=== PATIENT | male | born 1970 | race Caucasian/White ===

== ENCOUNTER → 2018-03-04 | Outpatient (CLI) | payer OTHER ==
--- NOTE | 2018-03-04 11:26 | XR ---
EXAMINATION TYPE: XR hand complete LT DATE OF EXAM: 03/04/2018 CLINICAL HISTORY: Left hand pain TECHNIQUE: Frontal, lateral and oblique images of the left hand are obtained. COMPARISON: None. FINDINGS: There is no acute fracture/dislocation evident in the left hand. The joint spaces in the l eft hand appear within normal limits. The overlying soft tissue appears unremarkable. IMPRESSION: There is no acute fracture or dislocation in the left hand.
--- NOTE | 2018-03-04 11:27 | XR ---
EXAMINATION TYPE: XR knee complete LT DATE OF EXAM: 03/04/2018 CLINICAL HISTORY: Fall with subsequent left knee pain TECHNIQUE: Three views of the left knee are obtained. COMPARISON: None. FINDINGS: There is no acute fracture/dislocation evident in left knee. The tri-compartment joint sp aces appear within normal limits. The overlying soft tissue appears unremarkable. IMPRESSION: There is no acute fracture or dislocation in the left knee.
== END | disposition home or self-care (01) ==
LOC: RADXRMAIN 11:03
PROVIDERS: ATTEND Family Medicine
DX: M25.562 Pain in left knee (principal)

== ENCOUNTER 2019-08-18 13:42 | Emergency (ER) | payer OTHER ==
[2019-08-18 14:12] VITALS: RESP 18
[2019-08-18 14:48] LABS: Basophils # (A) 0.1 k/uL (0-0.2); Basophils % (A) 2 %; Eosinophils # (A) 0.7 k/uL (0-0.7); Eosinophils % (A) 9 %; HCT 43.9 % (39.0-53.0); HGB 14.6 gm/dL (13.0-17.5); Lymphocytes # (A) 1.4 k/uL (1.0-4.8); Lymphocytes % (A) 18 %; MCH 31.6 pg (25.0-35.0); MCHC 33.1 g/dL (31.0-37.0); MCV 95.2 fL (80.0-100.0); Mean Platelet Volume 6.8; Monocytes # (A) 0.6 k/uL (0-1.0); Monocytes % (A) 7 %; Neutrophils # (A) 4.6 k/uL (1.3-7.7); Neutrophils % (A) 61 %; Platelet Count 220 k/uL (150-450); RBC 4.61 m/uL (4.30-5.90); RDW 12.1 % (11.5-15.5); WBC 7.6 k/uL (3.8-10.6)
[2019-08-18 14:56] LABS: ALT 20 U/L (21-72); AST 24 U/L (17-59); African American GFR (CKD) >90 (>60 ml/min/1.73 sqM); Albumin 4.6 g/dL (3.5-5.0); Alkaline Phosphatase 64 U/L (38-126); Anion Gap 9 mmol/L; Blood Urea Nitrogen 11 mg/dL (9-20); Calcium 9.7 mg/dL (8.4-10.2); Carbon Dioxide 27 mmol/L (22-30); Chloride 103 mmol/L (98-107); Glucose 79 mg/dL (74-99); Potassium 4.5 mmol/L (3.5-5.1); Sodium 139 mmol/L (137-145); Total Bilirubin 0.9 mg/dL (0.2-1.3); Total Protein 7.3 g/dL (6.3-8.2)
[2019-08-18] MEDS ORDERED: methylPREDNISolone SOD SUCCI 125 MG/2 ML VIAL IV STA (15:46)
[2019-08-18] MEDS ORDERED: IPRATROPIUM-ALBUTEROL 3 ML NEB INHALATION STA ×2 (15:46→16:31)
--- NOTE | 2019-08-18 16:29 | XR ---
EXAMINATION TYPE: XR chest 2V DATE OF EXAM: 08/18/2019 COMPARISON: NONE HISTORY: Missed breath TECHNIQUE: Frontal and lateral views of the chest are obtained. FINDINGS: There are prominent lung volumes with relative flattening of hemidiaphragms suggesting unde rlying COPD. There is no focal air space opacity, pleural effusion, or pneumothorax seen. The cardia c silhouette size is within normal limits. The osseous structures are intact. IMPRESSION: No acute cardiopulmonary process.
--- NOTE | 2019-08-18 16:44 | ED ---
SOB HPI - General Chief Complaint: Shortness of Breath Stated Complaint: SOB Time Seen by Provider: 08/18/19 15:37 Source: patient Mode of arrival: wheelchair Limitations: no limitations - History of Present Illness Initial Comments: 49-year-old male with history of COPD presenting today for chief complaint of increasing wheezing and shortness of breath. Patient states he feels like he cannot expand his lungs he states he has been doing home breathing treatments today do not seem to help. Patient denies chest pain. Patient denies leg swelling or coughing up blood patient states he has had some sputum production denies fevers rigors or chills. Patient denies any sore throat he denies any recent travel surgery history of cancer. Patient states that he is a chronic wheezer in his lungs always sound "bad". Patient states he follows a pulmonol ogist. Remaining review of system negative. Upon arrival patient appears well no signs of acute distress. - Related Data Home Medications Medication Instructions Recorded Confirmed Albuterol Inhaler [Ventolin 2 puff INHALATION RT-QID 04/03/14 08/18/19 Inhaler] Albuterol Nebulized [Ventolin 2.5 mg INHALATION RT-QID PRN 11/27/17 08/18/19 Nebulized] Montelukast [Singulair] 10 mg PO HS 11/27/17 08/18/19 Omalizumab [Xolair] 300 mg SQ Q14D 11/27/17 08/18/19 Umeclidinium [place] [Incruse 1 puff INHALATION RT-DAILY 08/18/19 08/18/19 Ellipta] Previous Rx's Medication Instructions Recorded Azithromycin [Zithromax Z-pack] 0 mg PO DIRECTED #6 tab 08/18/19 predniSONE 20 mg PO BID 4 Days #8 tab 08/18/19 Allergies Allergy/AdvReac Type Severity Reaction Status Date / Time Penicillins Allergy Rash/Hives Verified 08/18/19 16:13 Review of Systems ROS Statement: Those systems with pertinent positive or pertinent negative responses have been documented in the HPI. ROS Other: All systems not noted in ROS Statement are negative. Past Medical History Past Medical History: Asthma History of Any Multi-Drug Resistant Organisms: None Reported Past Surgical History: Adenoidectomy, Hernia Repair, Tonsillectomy Past Psychological History: Depression Smoking Status: Current every day smoker Past Alcohol Use History: None Reported, Abuse, Daily, Heavy Past Drug Use History: None Reported General Exam - General Exam Comments Initial Comments: General: The patient is awake and alert, in no distress, and does not appear acutely ill. Eye: +3 mm pupils are equal, round and reactive to light, extra-ocular movements are intact. No nystagmus. There is normal conjunctiva bilaterally. No signs of icterus. Ears, nose, mouth and throat: There are moist mucous membranes and no oral lesions. Neck: The neck is supple, there is no tenderness or JVD. Cardiovascular: There is a regular rate and rhythm. No murmur, rub or gallop is appreciated. Respiratory: Diminished air movement of the lung boyer bilaterally. However respirations are nonlabored there is significant expiratory wheeze and no stridor rales or rhonchi noted. Dry cough and exam. Gastrointestinal: Soft, non-distended, non-tender abdomen without masses or organomegaly noted. There is no rebound or guarding present. Musculoskeletal: Normal ROM, no tenderness. Strength 5/5. Sensation intact. Radial and DP pulses equal bilaterally 2+. Neurological: A&O x 3. CN II-XII intact, There are no obvious motor or sensory deficits. Coordination appears grossly intact. Speech is normal. Skin: Skin is warm and dry and no rashes or lesions are noted. No lower extremity edema Psychiatric: Cooperative, appropriate mood & affect, normal judgment. Limitations: no limitations Course Vital Signs 08/18/19 08/18/19 08/18/19 13:47 15:37 16:11 Temperature 97.8 F Pulse Rate 89 96 Respiratory 18 Rate Blood Pressure 142/97 O2 Sat by Pulse 95 91 L Oximetry 08/18/19 08/18/19 08/18/19 16:25 16:43 16:56 Temperature Pulse Rate 98 96 94 Respiratory Rate Blood Pressure O2 Sat by Pulse Oximetry 08/18/19 17:30 Temperature 98.7 F Pulse Rate 84 Respiratory 18 Rate Blood Pressure 132/93 O2 Sat by Pulse 96 Oximetry Medical Decision Making - Medical Decision Making 49-year-old male presents emergency department for chief complaint shortness of breath history of COPD states it feels like when his COPD has been accessory in the past. Patient had significant improvement after 1 DuoNeb treatment he attempts to leave the emergency department I encouraged patient to stay for second IC stilts for wheeze however had increased air movement. Patient states he has chronic wheezing and that'll not be completely resolved. Patient states she would like to go home THE bus he states he feels 100% better. Patient was also given slightly mottled emergency department. EKG stable troponin negative leukocytosis and chest x-ray revealed no focal consolidations. at this time feel patient is stable for discharge with outpatient primary care follow-up. return parameters were discussed in a discussed the case metallic provider. patient is discharged appearing well improvement of oxygen saturation. - Lab Data Result diagrams: 08/18/19 14:40 08/18/19 14:40 Lab Results 08/18/19 08/18/19 08/18/19 Range/Units 14:40 14:40 14:40 WBC 7.6 (3.8-10.6) k/uL RBC 4.61 (4.30-5.90) m/uL Hgb 14.6 (13.0-17.5) gm/dL Hct 43.9 (39.0-53.0) % MCV 95.2 (80.0-100.0) fL MCH 31.6 (25.0-35.0) pg MCHC 33.1 (31.0-37.0) g/dL RDW 12.1 (11.5-15.5) % Plt Count 220 (150-450) k/uL Neutrophils % 61 % Lymphocytes % 18 % Monocytes % 7 % Eosinophils % 9 % Basophils % 2 % Neutrophils # 4.6 (1.3-7.7) k/uL Lymphocytes # 1.4 (1.0-4.8) k/uL Monocytes # 0.6 (0-1.0) k/uL Eosinophils # 0.7 (0-0.7) k/uL Basophils # 0.1 (0-0.2) k/uL Sodium 139 (137-145) mmol/L Potassium 4.5 (3.5-5.1) mmol/L Chloride 103 (98-107) mmol/L Carbon Dioxide 27 (22-30) mmol/L Anion Gap 9 mmol/L BUN 11 (9-20) mg/dL Creatinine 0.71 (0.66-1.25) mg/dL Est GFR (CKD-EPI)AfAm >90 (>60 ml/min/1.73 sqM) Est GFR (CKD-EPI)NonAf >90 (>60 ml/min/1.73 sqM) Glucose 79 (74-99) mg/dL Calcium 9.7 (8.4-10.2) mg/dL Total Bilirubin 0.9 (0.2-1.3) mg/dL AST 24 (17-59) U/L ALT 20 L (21-72) U/L Alkaline Phosphatase 64 (38-126) U/L Troponin I 0.012 (0.000-0.034) ng/mL Total Protein 7.3 (6.3-8.2) g/dL Albumin 4.6 (3.5-5.0) g/dL - EKG Data EKG Comments: Ventricular rate 74 bpm, PA interval 118 ms, QRS ratio 92 ms QT/QTC 426/472 ms this is normal sinus no ST elevation or depression. No specific T-wave changes. There is noted right atrial enlargement. EKG per se interpreted and reviewed. Disposition Clinical Impression: Shortness of breath, COPD exacerbation, Cough Disposition: HOME SELF-CARE Condition: Good Instructions (If sedation given, give patient instructions): COPD (Chronic O bstructive Pulmonary Disease) (ED) Additional Instructions: Please use medication as discussed. Please follow-up with family doctor in the next 2 days. Please return to emergency room if the symptoms increase or worsen or for any other concerns. Prescriptions: predniSONE 20 mg PO BID 4 Days #8 tab Azithromycin [Zithromax Z-pack] 0 mg PO DIRECTED #6 tab Is patient prescribed a controlled substance at d/c from ED?: No Referrals: Romero Orozco MD [Primary Care Provider] - 1-2 days Time of Disposition: 17:31
[2019-08-18 17:32] VITALS: BP 132/93; PULSE 84; TEMP 98.7
== END 2019-08-18 17:37 | disposition home or self-care (01) ==
LOC: EC 13:42
DX: J44.1 Chronic obstructive pulmonary disease with (acute) exacerbation (principal); F17.200 Nicotine dependence, unspecified, uncomplicated; Z79.899 Other long term (current) drug therapy; Z88.0 Allergy status to penicillin
CPT/HCPCS: 36415; 94640 ×2; 93005; 80053; 84484; 85025; 71046; 99285; 96374; J2930

== ENCOUNTER → 2019-08-26 | Outpatient (CLI) | payer OTHER ==
--- NOTE | 2019-08-26 09:12 | CT ---
EXAMINATION TYPE: CT chest wo con DATE OF EXAM: 08/26/2019 COMPARISON: Chest x-ray 8 days ago. HISTORY: COPD CT DLP: 136.1 mGycm. Automated Exposure Control for Dose Reduction was Utilized. TECHNIQUE: CT scan of the thorax is performed without IV contrast. FINDINGS: LUNGS: There is lateral left basilar linear scarring and/or atelectasis. Mild left apical linear scar ring. Mild underlying emphysematous change. No pleural effusion or pneumothorax is seen bilaterally. There is 3 mm calcified nodule or granuloma medial right lung base coronal image 50. No suspicious gr eater than 4 mm noncalcified nodules or masses. MEDIASTINUM: Lack of IV contrast is noted to limit evaluation for mediastinal and especially hilar ad enopathy. There are no definitive greater than 1 cm hilar or mediastinal lymph nodes. No cardiomega ly or pericardial effusion is seen. Right pulmonary artery measures 2.4 cm in diameter. Correlate for possible underlying pulmonary hypertension. OTHER: Small degree of bilateral gynecomastia is noted. Mild multilevel spurring. IMPRESSION: Mild underlying emphysematous change without acute pulmonary process.
== END | disposition home or self-care (01) ==
LOC: RADCTMAIN 06:57
PROVIDERS: ATTEND Internal Medicine Pulmonary Disease
DX: J43.9 Emphysema, unspecified (principal); R63.4 Abnormal weight loss; J45.50 Severe persistent asthma, uncomplicated; Z88.0 Allergy status to penicillin
CPT/HCPCS: 71250

== ENCOUNTER 2021-04-04 07:44 | Emergency (ER) | payer OTHER ==
[2021-04-04 07:52] VITALS: RESP 18
--- NOTE | 2021-04-04 08:02 | ED ---
Lower Extremity Injury HPI - General Chief Complaint: Extremity Injury, Lower Stated Complaint: abd pain/ankle injury Time Seen by Provider: 04/04/21 07:53 Source: patient Mode of arrival: ambulatory Limitations: no limitations - History of Present Illness Initial Comments: 51-year-old male who is a daily drinker presenting to the ER today for chief complaint of right ankle pain. Patient states he inverted his right ankle and has had pain swelling and bruising since Saturday. Patient states that yesterday he developed right rib pain while rolling over in bed. He states he is not sure if he displaced rib. Patient states the pain increases with a deep breath. He denies any chest pressure or shortness of breath hemoptysis. He denies any calf swelling or pain. Patient states the ankle is swollen/bruised. Pt denies head/neck or abdominal injury. Denies direct chest injury. Patient denies additional complaints. pt states that he is missing work and has to prove to him employer his injuries. pt on arrival is pleasant in no distress. - Related Data Home Medications Medication Instructions Recorded Confirmed Albuterol Nebulized [Ventolin 2.5 mg INHALATION RT-QID PRN 11/27/17 04/04/21 Nebulized] Montelukast [Singulair] 10 mg PO HS 11/27/17 04/04/21 Fluticasone Propionate [Flovent 2 puff INHALATION RT-BID 04/04/21 04/04/21 Hfa 220 mcg] Omalizumab [Xolair] 75 mg SQ Q14D 04/04/21 04/04/21 Omalizumab [Xolair] 150 mg SQ Q14D 04/04/21 04/04/21 Propranolol HCl [Inderal] 60 mg PO BID 04/04/21 04/04/21 Tiotropium [place] [Spiriva] 1 cap INHALATION RT-DAILY 04/04/21 04/04/21 terbinafine HCL [Terbinafine HCl] 250 mg PO DAILY 04/04/21 04/04/21 Allergies Allergy/AdvReac Type Severity Reaction Status Date / Time Penicillins Allergy Rash/Hives Verified 04/04/21 10:38 Review of Systems ROS Statement: Those systems with pertinent positive or pertinent negative responses have been documented in the HPI. ROS Other: All systems not noted in ROS Statement are negative. Past Medical History Past Medical History: Asthma, Hypertension History of Any Multi-Drug Resistant Organisms: None Reported Past Surgical History: Adenoidectomy, Hernia Repair, Tonsillectomy Past Psychological History: Depression Past Alcohol Use History: None Reported, Abuse, Daily, Heavy Past Drug Use History: None Reported General Exam - General Exam Comments Initial Comments: General: The patient is awake and alert, in no distress, and does not appear acutely ill. Eye: Pupils are equal, round and reactive to light, extra-ocular movements are intact. No nystagmus. There is normal conjunctiva bilaterally. No signs of icterus. Ears, nose, mouth and throat: There are moist mucous membranes and no oral lesions. Neck: The neck is supple, there is no tenderness or JVD. Cardiovascular: There is a regular rate and rhythm. No murmur, rub or gallop is appreciated. Respiratory: Lungs are clear to auscultation, respirations are non-labored, breath sounds are equal. No wheezes, stridor, rales, or rhonchi. Gastrointestinal: Soft, non-distended, non-tender abdomen without masses or organomegaly noted. There is no rebound or guarding present. Musculoskeletal: No bruising of ribs noted. Soft tissue swelling and bruising noted over the right lateral malleolus. can weight bear and ambulate. Normal ROM. Strength 5/5. Sensation intact. Radial and DP pulses equal bilaterally 2+. Neurological: A&O x 3. CN II-XII intact, There are no obvious motor or sensory deficits. Coordination appears grossly intact. Speech is normal. Skin: Skin is warm and dry and no rashes or lesions are noted. Psychiatric: Cooperative, appropriate mood & affect, normal judgment. Limitations: no limitations Course Vital Signs 04/04/21 04/04/21 07:47 10:47 Temperature 97.8 F 98.3 F Pulse Rate 117 H 93 Respiratory 18 18 Rate Blood Pressure 180/98 161/114 O2 Sat by Pulse 97 100 Oximetry Medical Decision Making - Medical Decision Making Ventricular rate 103 bpm, MT interval 136 pulse seconds, QRS ratio 92 ms, QT/QTC 370/495 ms. This is sinus tachycardia, no ST elevation or depression. Ankle sprain on exam. XR (-) osseous injury. pt placed in splint. US (-) DVT. CTA (-) PE. likely MSK cause of rib pain. No chest pain. Pt states he just wants a work note and to go home. pt has no additional complaints. Pt discharged appearing well. - Lab Data Result diagrams: 04/04/21 08:38 04/04/21 08:38 Lab Results 04/04/21 04/04/21 04/04/21 Range/Units 08:38 08:38 08:38 WBC 7.7 (3.8-10.6) k/uL RBC 4.58 (4.30-5.90) m/uL Hgb 14.7 (13.0-17.5) gm/dL Hct 43.0 (39.0-53.0) % MCV 93.9 (80.0-100.0) fL MCH 32.0 (25.0-35.0) pg MCHC 34.1 (31.0-37.0) g/dL RDW 12.4 (11.5-15.5) % Plt Count 274 (150-450) k/uL MPV 6.8 Neutrophils % 69 % Lymphocytes % 21 % Monocytes % 6 % Eosinophils % 1 % Basophils % 1 % Neutrophils # 5.3 (1.3-7.7) k/uL Lymphocytes # 1.6 (1.0-4.8) k/uL Monocytes # 0.5 (0-1.0) k/uL Eosinophils # 0.1 (0-0.7) k/uL Basophils # 0.1 (0-0.2) k/uL D-Dimer 1.12 H (<0.60) mg/L FEU Sodium 142 (137-145) mmol/L Potassium 3.8 (3.5-5.1) mmol/L Chloride 106 (98-107) mmol/L Carbon Dioxide 24 (22-30) mmol/L Anion Gap 12 mmol/L BUN 8 L (9-20) mg/dL Creatinine 0.62 L (0.66-1.25) mg/dL Est GFR (CKD-EPI)AfAm >90 (>60 ml/min/1.73 sqM) Est GFR (CKD-EPI)NonAf >90 (>60 ml/min/1.73 sqM) Glucose 101 H (74-99) mg/dL Calcium 9.2 (8.4-10.2) mg/dL Total Bilirubin 0.4 (0.2-1.3) mg/dL AST 41 (17-59) U/L ALT 24 (4-49) U/L Alkaline Phosphatase 74 (38-126) U/L Troponin I (0.000-0.034) ng/mL NT-Pro-B Natriuret Pep pg/mL Total Protein 7.2 (6.3-8.2) g/dL Albumin 4.6 (3.5-5.0) g/dL 04/04/21 04/04/21 Range/Units 08:38 08:38 WBC (3.8-10.6) k/uL RBC (4.30-5.90) m/uL Hgb (13.0-17.5) gm/dL Hct (39.0-53.0) % MCV (80.0-100.0) fL MCH (25.0-35.0) pg MCHC (31.0-37.0) g/dL RDW (11.5-15.5) % Plt Count (150-450) k/uL MPV Neutrophils % % Lymphocytes % % Monocytes % % Eosinophils % % Basophils % % Neutrophils # (1.3-7.7) k/uL Lymphocytes # (1.0-4.8) k/uL Monocytes # (0-1.0) k/uL Eosinophils # (0-0.7) k/uL Basophils # (0-0.2) k/uL D-Dimer (<0.60) mg/L FEU Sodium (137-145) mmol/L Potassium (3.5-5.1) mmol/L Chloride (98-107) mmol/L Carbon Dioxide (22-30) mmol/L Anion Gap mmol/L BUN (9-20) mg/dL Creatinine (0.66-1.25) mg/dL Est GFR (CKD-EPI)AfAm (>60 ml/min/1.73 sqM) Est GFR (CKD-EPI)NonAf (>60 ml/min/1.73 sqM) Glucose (74-99) mg/dL Calcium (8.4-10.2) mg/dL Total Bilirubin (0.2-1.3) mg/dL AST (17-59) U/L ALT (4-49) U/L Alkaline Phosphatase (38-126) U/L Troponin I <0.012 (0.000-0.034) ng/mL NT-Pro-B Natriuret Pep 76 pg/mL Total Protein (6.3-8.2) g/dL Albumin (3.5-5.0) g/dL Disposition Clinical Impression: Right ankle sprain, Rib pain on right side Disposition: HOME SELF-CARE Condition: Good Instructions (If sedation given, give patient instructions): Ankle Sprain (ED) Additional Instructions: Please use medication as discussed. Please follow-up with family doctor in the next 2 days of symptoms have not improved. Please return to emergency room if the symptoms increase or worsen or for any other concerns. Is patient prescribed a controlled substance at d/c from ED?: No Referrals: Romero Orozco MD [Primary Care Provider] - 1-2 days Time of Disposition: 10:44
--- NOTE | 2021-04-04 08:33 | XR ---
EXAMINATION TYPE: XR ankle complete RT DATE OF EXAM: 04/04/2021 COMPARISON: None HISTORY: Swelling, inversion injury TECHNIQUE: 3 view right ankle FINDINGS: Soft tissue swelling is over the lateral malleolus. Anterior ankle swelling is also noted. The ankle mortise is intact. No acute fracture or dislocation is evident. Follow-up studies can be performed 7-10 days from acute trauma for continued pain. IMPRESSION: 1. Soft tissue swelling anterior and lateral right ankle.
--- NOTE | 2021-04-04 08:35 | XR ---
EXAMINATION TYPE: XR ribs RT w pa chest xray DATE OF EXAM: 04/04/2021 CLINICAL HISTORY: Chest and right lower rib pain after fall injury. TECHNIQUE: Single frontal view of the chest is obtained. A frontal and oblique images of the right-si ded ribs are acquired. COMPARISON: Chest x-ray August 18, 2019. CT chest August 26, 2019. FINDINGS: There is mild chronic parenchymal change without suspicious new focal air space opacity, p leural effusion, or pneumothorax seen. The cardiac silhouette size is stable and within normal limit s. Overlying EKG leads are present. The osseous structures are intact. Dedicated images of right-sided ribs show no acute displaced fracture. Overlying soft tissue is unrem arkable. IMPRESSION: 1. No acute cardiopulmonary process. 2. No acute displaced right-sided rib fracture is seen.
[2021-04-04 08:49] LABS: Basophils # (A) 0.1 k/uL (0-0.2); Basophils % (A) 1 %; Eosinophils # (A) 0.1 k/uL (0-0.7); Eosinophils % (A) 1 %; HGB 14.7 gm/dL (13.0-17.5); Lymphocytes # (A) 1.6 k/uL (1.0-4.8); Lymphocytes % (A) 21 %; MCHC 34.1 g/dL (31.0-37.0); MCV 93.9 fL (80.0-100.0); Mean Platelet Volume 6.8; Monocytes # (A) 0.5 k/uL (0-1.0); Monocytes % (A) 6 %; Neutrophils # (A) 5.3 k/uL (1.3-7.7); Neutrophils % (A) 69 %; Platelet Count 274 k/uL (150-450); RBC 4.58 m/uL (4.30-5.90); RDW 12.4 % (11.5-15.5); WBC 7.7 k/uL (3.8-10.6)
[2021-04-04 09:02] LABS: ALT 24 U/L (4-49); AST 41 U/L (17-59); African American GFR (CKD) >90 (>60 ml/min/1.73 sqM); Albumin 4.6 g/dL (3.5-5.0); Alkaline Phosphatase 74 U/L (38-126); Anion Gap 12 mmol/L; Blood Urea Nitrogen 8 mg/dL (9-20); Calcium 9.2 mg/dL (8.4-10.2); Carbon Dioxide 24 mmol/L (22-30); Chloride 106 mmol/L (98-107); Glucose 101 mg/dL (74-99); Non-African American GFR(CKD) >90 (>60 ml/min/1.73 sqM); Potassium 3.8 mmol/L (3.5-5.1); Sodium 142 mmol/L (137-145); Total Bilirubin 0.4 mg/dL (0.2-1.3); Total Protein 7.2 g/dL (6.3-8.2)
--- NOTE | 2021-04-04 09:15 | US ---
EXAMINATION TYPE: US venous doppler duplex LE RT DATE OF EXAM: 04/04/2021 8:54 AM COMPARISON: NONE CLINICAL HISTORY: ankle injury/rib pain now. Pt states injuring right ankle falling 4 days ago, havin g pain and discoloration SIDE PERFORMED: Right TECHNIQUE: The lower extremity deep venous system is examined utilizing real time linear array sonog alisha with graded compression, doppler sonography and color-flow sonography. VESSELS IMAGED: Common Femoral Vein Deep Femoral Vein Greater Saphenous Vein * Femoral Vein Popliteal Vein Small Saphenous Vein * Proximal Calf Veins (* superficial vessels) Right Leg: Negative for DVT IMPRESSION: 1. Right lower extremity ultrasound negative for deep venous thrombosis.
--- NOTE | 2021-04-04 10:30 | CT ---
EXAMINATION TYPE: CT chest angio for PE DATE OF EXAM: 04/04/2021 COMPARISON: None HISTORY: Elevated d-dimer, rib pain CT DLP: 212.9 mGycm CONTRAST: CT chest with contrast and 3D reconstruction with MIP imaging is performed without and with IV Contra st, patient injected with 100 ml mL of Isovue 370. Contrast-enhanced CT of the chest was performed through the course of the pulmonary arteries with deepa g and mediastinal window settings submitted. 3D reconstruction with MIP imaging was also performed. PULMONARY ARTERIES: The pulmonary arteries and their major tributaries are patent. I do not see ann dence for sizable filling defect to suggest pulmonary embolic process. LUNGS: The lungs are clear and free of infiltrate. No evidence for atelectasis. No pulmonary nodule or mass is detected. No pleural effusion. MEDIASTINUM: Thoracic aorta is of normal caliber,however, evaluation is limited given timing of the contrast bolus. If there is concern for thoracic aortic pathology consider CHIRSTIAN. Correlate clinicall y . The heart is not enlarged. No evidence for mediastinal mass. No mediastinal lymph nodes greater than 1cm. HILAR STRUCTURES: No evidence for mass. No hilar lymph nodes greater than 1 cm. UPPER ABDOMEN: No significant abnormality is seen. IMPRESSION: 1. No evidence for Pulmonary embolism at this time.
[2021-04-04 10:49] VITALS: BP 161/114; PULSE 93; TEMP 98.3
== END 2021-04-04 10:58 | disposition home or self-care (01) ==
LOC: EC 07:44
DX: S93.401A Sprain of unspecified ligament of right ankle, initial encounter (principal); R07.81 Pleurodynia; I10 Essential (primary) hypertension; J45.909 Unspecified asthma, uncomplicated; F32.9 Major depressive disorder, single episode, unspecified; Z90.09 Acquired absence of other part of head and neck; X50.0XXA Overexertion from strenuous movement or load, initial encounter
CPT/HCPCS: 36415; 93005; 85379; 83880; 80053; 84484; 85025; 71101; 73610; 93971; 71275; 99283; L4350; Q9967

== ENCOUNTER 2021-06-18 06:30 | Emergency (ER) | payer OTHER ==
[2021-06-18 06:37] VITALS: RESP 20; TEMP 97
[2021-06-18] MEDS ORDERED: DIPH,PERTUS(ACELL)TETVAC-LF 0.5 ML VIAL IM ONE (06:52)
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
--- NOTE | 2021-06-18 08:18 | CT ---
EXAMINATION TYPE: CT brain yefriine wo con DATE OF EXAM: 06/18/2021 COMPARISON: None HISTORY: Laceration/head injury CT DLP: 1356.9 mGycm, Automated exposure control for dose reduction was used. CONTRAST: Patient injected with 0 mL of Isovue 300. CT of the brain is performed utilizing 3 mm thick sections through the posterior fossa and 3 mm thick sections through the remaining calvarium. Study is performed within 24 hours of arrival to the hospital. No abnormal hyperdensity is present to suggest an acute intracranial hemorrhage. No mass lesion is evident. No acute infarcts are evident. Ventricles and sulci are appropriate for the patient age. Paranasal sinuses and mastoid air cells within the [id number] are clear. IMPRESSIONS: 1. Normal CT brain. CT cervical spine. COMPARISON: None CT of the cervical spine is performed in the axial plane at 2 mm thick sections. Reconstructed image s in the coronal, and sagittal plane are reviewed on the computer. No acute fractures are evident. Vertebral body alignment is normal. Disc heights are preserved. Vertebral body heights are preserved. No spinal canal stenosis is evident. Some mild bilateral foraminal narrowing from uncovertebral V is present C5-6. IMPRESSIONS: 1. No acute osseous cervical spine
[2021-06-18 08:33] VITALS: BP 111/74; PULSE 60
== END 2021-06-18 08:47 | disposition home or self-care (01) ==
LOC: EC 06:30
DX: S01.01XA Laceration without foreign body of scalp, initial encounter (principal); I10 Essential (primary) hypertension; J45.909 Unspecified asthma, uncomplicated; F17.200 Nicotine dependence, unspecified, uncomplicated; F12.90 Cannabis use, unspecified, uncomplicated; Z79.51 Long term (current) use of inhaled steroids; Z79.899 Other long term (current) drug therapy; Z88.0 Allergy status to penicillin; Z23 Encounter for immunization; Y09 Assault by unspecified means
CPT/HCPCS: 12002; 70450; 72125; 82075; 90471; 90715; 99284

== ENCOUNTER 2021-07-27 12:43 | Observation (INO) | payer OTHER ==
[2021-07-27] MEDS ORDERED: methylPREDNISolone SOD SUCCI 125 MG/2 ML VIAL IV STA (13:16)
[2021-07-27] MEDS ORDERED: ALBUTEROL NEBULIZED 2.5 MG/3 ML INHALATION STA (13:16)
[2021-07-27] MEDS ORDERED: IPRATROPIUM 0.5 MG/2.5 ML NEBU INHALATION STA (13:16)
[2021-07-27] MEDS ORDERED: SODIUM CHLORIDE 0.9% 1,000 ML IV STA (13:16)
--- NOTE | 2021-07-27 13:25 | ED ---
General Adult HPI - General Chief complaint: Shortness of Breath Stated complaint: SOB & congestion Time Seen by Provider: 07/27/21 12:50 Source: patient, RN notes reviewed, old records reviewed Mode of arrival: ambulatory Limitations: no limitations - History of Present Illness Initial comments: This is a 51-year-old male who presents emergency Department stating he has a history of COPD and continues to smoke. Patient states he has been having diff iculty breathing. Last few weeks but getting much worse over the last couple of days. Patient states he has a nebulizer but he is unable to get access to it and so he hasn't used in quite a while. Patient denies any fever chills or cough per patient denies any chest pain or palpitations. Patient denies abdominal pain patient denies nausea vomiting or diarrhea. Patient denies any swelling to the legs or calf tenderness. Patient denies lightheadedness or dizziness. - Related Data Home Medications Medication Instructions Recorded Confirmed Montelukast [Singulair] 10 mg PO HS 11/27/17 07/27/21 Fluticasone Propionate [Flovent 2 puff INHALATION RT-BID 04/04/21 07/27/21 Hfa 220 mcg] Omalizumab [Xolair] 75 mg SQ Q14D 04/04/21 07/27/21 Omalizumab [Xolair] 150 mg SQ Q14D 04/04/21 07/27/21 Propranolol HCl [Inderal] 60 mg PO BID 04/04/21 07/27/21 Tiotropium [place] [Spiriva] 1 cap INHALATION RT-DAILY 04/04/21 07/27/21 terbinafine HCL [Terbinafine HCl] 250 mg PO DAILY 04/04/21 07/27/21 Albuterol Sulfate [Proair Hfa] 1 - 2 puff INHALATION RT-QID PRN 07/27/21 07/27/21 Allergies Allergy/AdvReac Type Severity Reaction Status Date / Time Penicillins Allergy Rash/Hives Verified 07/27/21 13:36 Review of Systems ROS Statement: Those systems with pertinent positive or pertinent negative responses have been documented in the HPI. ROS Other: All systems not noted in ROS Statement are negative. Past Medical History Past Medical History: Asthma, Hypertension History of Any Multi-Drug Resistant Organisms: None Reported Past Surgical History: Adenoidectomy, Hernia Repair, Tonsillectomy Past Psychological History: Depression Smoking Status: Current every day smoker Past Alcohol Use History: None Reported, Abuse, Daily, Heavy Past Drug Use History: Marijuana General Exam - General Exam Comments Initial Comments: GENERAL: Patient is well-developed and well-nourished. Patient is nontoxic and well- hydrated and is in mild distress. ENT: Neck is soft and supple. No significant lymphadenopathy is noted. Oropharynx is clear. Moist mucous membranes. Neck has full range of motion without eliciting any pain. EYES: The sclera were anicteric and conjunctiva were pink and moist. Extraocular movements were intact and pupils were equal round and reactive to light. Eyelids were unremarkable. PULMONARY: Expiratory wheezing diffusely CARDIOVASCULAR: There is a regular rate and rhythm without any murmurs gallops or rubs. ABDOMEN: Soft and nontender with normal bowel sounds. SKIN: Skin is clear with no lesions or rashes and otherwise unremarkable. NEUROLOGIC: Patient is alert and oriented x3. Cranial nerves II through XII are grossly intact. Motor and sensory are also intact. Normal speech, volume and content. Symmetrical smile. MUSCULOSKELETAL: Normal extremities with adequate strength and full range of motion. No lower extremity swelling or edema. No calf tenderness. LYMPHATICS: No significant lymphadenopathy is noted PSYCHIATRIC: Normal psychiatric evaluation. Limitations: no limitations Course Vital Signs 07/27/21 07/27/21 07/27/21 12:48 14:28 14:35 Temperature 98.2 F Pulse Rate 76 78 78 Respiratory 22 Rate Blood Pressure 145/99 O2 Sat by Pulse 97 Oximetry 07/27/21 14:45 Temperature Pulse Rate 76 Respiratory Rate Blood Pressure O2 Sat by Pulse Oximetry Medical Decision Making - Medical Decision Making Chest x-ray shows no acute abnormality. Patient received multiple breathing treatments and steroids in the emergency department but on reexamination patient continued to wheeze diffusely. I spoke with Dr. Orozco he agreed to admit the patient admitted the patient I wrote admitting orders. - Lab Data Result diagrams: 07/27/21 13:48 07/27/21 13:48 Lab Results 07/27/21 07/27/21 07/27/21 Range/Units 13:48 13:48 13:48 WBC 7.7 (3.8-10.6) k/uL RBC 4.36 (4.30-5.90) m/uL Hgb 14.5 (13.0-17.5) gm/dL Hct 43.0 (39.0-53.0) % MCV 98.7 (80.0-100.0) fL MCH 33.3 (25.0-35.0) pg MCHC 33.7 (31.0-37.0) g/dL RDW 13.5 (11.5-15.5) % Plt Count 286 (150-450) k/uL MPV 7.4 Neutrophils % 69 % Lymphocytes % 18 % Monocytes % 7 % Eosinophils % 1 % Basophils % 2 % Neutrophils # 5.3 (1.3-7.7) k/uL Lymphocytes # 1.4 (1.0-4.8) k/uL Monocytes # 0.5 (0-1.0) k/uL Eosinophils # 0.1 (0-0.7) k/uL Basophils # 0.1 (0-0.2) k/uL PT 9.9 (9.0-12.0) sec INR 0.9 (<1.2) APTT 23.9 (22.0-30.0) sec Sodium 136 L (137-145) mmol/L Potassium 4.8 (3.5-5.1) mmol/L Chloride 102 (98-107) mmol/L Carbon Dioxide 27 (22-30) mmol/L Anion Gap 7 mmol/L BUN 19 (9-20) mg/dL Creatinine 0.63 L (0.66-1.25) mg/dL Est GFR (CKD-EPI)AfAm >90 (>60 ml/min/1.73 sqM) Est GFR (CKD-EPI)NonAf >90 (>60 ml/min/1.73 sqM) Glucose 100 H (74-99) mg/dL Calcium 10.2 (8.4-10.2) mg/dL Magnesium 1.7 (1.6-2.3) mg/dL Total Bilirubin 0.7 (0.2-1.3) mg/dL AST 44 (17-59) U/L ALT 44 (4-49) U/L Alkaline Phosphatase 74 (38-126) U/L Troponin I (0.000-0.034) ng/mL Total Protein 7.0 (6.3-8.2) g/dL Albumin 4.5 (3.5-5.0) g/dL 07/27/21 Range/Units 13:48 WBC (3.8-10.6) k/uL RBC (4.30-5.90) m/uL Hgb (13.0-17.5) gm/dL Hct (39.0-53.0) % MCV (80.0-100.0) fL MCH (25.0-35.0) pg MCHC (31.0-37.0) g/dL RDW (11.5-15.5) % Plt Count (150-450) k/uL MPV Neutrophils % % Lymphocytes % % Monocytes % % Eosinophils % % Basophils % % Neutrophils # (1.3-7.7) k/uL Lymphocytes # (1.0-4.8) k/uL Monocytes # (0-1.0) k/uL Eosinophils # (0-0.7) k/uL Basophils # (0-0.2) k/uL PT (9.0-12.0) sec INR (<1.2) APTT (22.0-30.0) sec Sodium (137-145) mmol/L Potassium (3.5-5.1) mmol/L Chloride (98-107) mmol/L Carbon Dioxide (22-30) mmol/L Anion Gap mmol/L BUN (9-20) mg/dL Creatinine (0.66-1.25) mg/dL Est GFR (CKD-EPI)AfAm (>60 ml/min/1.73 sqM) Est GFR (CKD-EPI)NonAf (>60 ml/min/1.73 sqM) Glucose (74-99) mg/dL Calcium (8.4-10.2) mg/dL Magnesium (1.6-2.3) mg/dL Total Bilirubin (0.2-1.3) mg/dL AST (17-59) U/L ALT (4-49) U/L Alkaline Phosphatase (38-126) U/L Troponin I <0.012 (0.000-0.034) ng/mL Total Protein (6.3-8.2) g/dL Albumin (3.5-5.0) g/dL Disposition Clinical Impression: Acute exacerbation of chronic obstructive pulmonary disease Disposition: ADMITTED IP TO THIS HOSP Referrals: Romero Orozco MD [Primary Care Provider] - 1-2 days Time of Disposition: 14:51
[2021-07-27 14:00] LABS: Basophils # (A) 0.1 k/uL (0-0.2); Basophils % (A) 2 %; Eosinophils # (A) 0.1 k/uL (0-0.7); Eosinophils % (A) 1 %; HGB 14.5 gm/dL (13.0-17.5); Lymphocytes # (A) 1.4 k/uL (1.0-4.8); Lymphocytes % (A) 18 %; MCH 33.3 pg (25.0-35.0); MCHC 33.7 g/dL (31.0-37.0); MCV 98.7 fL (80.0-100.0); Mean Platelet Volume 7.4; Monocytes # (A) 0.5 k/uL (0-1.0); Monocytes % (A) 7 %; Neutrophils # (A) 5.3 k/uL (1.3-7.7); Neutrophils % (A) 69 %; Platelet Count 286 k/uL (150-450); RBC 4.36 m/uL (4.30-5.90); RDW 13.5 % (11.5-15.5); WBC 7.7 k/uL (3.8-10.6)
--- NOTE | 2021-07-27 14:07 | XR ---
EXAMINATION TYPE: XR chest 2V DATE OF EXAM: 07/27/2021 COMPARISON: 04/04/2021 HISTORY: 51 year-old male shortness of breath, difficulty breathing TECHNIQUE: PA and lateral views FINDINGS: The cardiomediastinal silhouette, aorta, and pulmonary vasculature are within normal limits. Hyperinf lation. Otherwise, lungs and pleural spaces are clear. IMPRESSION: Hyperinflation may relate to depth of inspiration or underlying emphysema. Clinically correlate. Othe rwise, no acute cardiopulmonary process.
[2021-07-27 14:19] LABS: INR 0.9 (<1.2); Partial Thromboplastin Time 23.9 sec (22.0-30.0); Prothrombin Time 9.9 sec (9.0-12.0)
[2021-07-27 14:21] LABS: ALT 44 U/L (4-49); AST 44 U/L (17-59); African American GFR (CKD) >90 (>60 ml/min/1.73 sqM); Albumin 4.5 g/dL (3.5-5.0); Alkaline Phosphatase 74 U/L (38-126); Anion Gap 7 mmol/L; Blood Urea Nitrogen 19 mg/dL (9-20); Calcium 10.2 mg/dL (8.4-10.2); Carbon Dioxide 27 mmol/L (22-30); Chloride 102 mmol/L (98-107); Glucose 100 mg/dL (74-99); Magnesium 1.7 mg/dL (1.6-2.3); Non-African American GFR(CKD) >90 (>60 ml/min/1.73 sqM); Potassium 4.8 mmol/L (3.5-5.1); Sodium 136 mmol/L (137-145); Total Bilirubin 0.7 mg/dL (0.2-1.3)
[2021-07-27] MEDS: methylPREDNISolone SOD SUCCI 125 MG/2 ML VIAL IV SCH (18:34)
[2021-07-27] MEDS: FLUTICASONE 110 MCG INHALER INHALATION SCH (19:21)
[2021-07-27] MEDS: MONTELUKAST 10 MG TAB PO SCH (20:31)
[2021-07-27] MEDS: SULFAMETHOX-TMP 800-160MG 1 EACH TAB PO SCH (20:31)
[2021-07-27] MEDS: PROPRANOLOL 20 MG TAB PO SCH (21:25)
[2021-07-27] MEDS ORDERED: RX INFO: IV CONTRAST WAS GIVEN 1 EACH MISC MISCELLANE PRN (23:55)
[2021-07-28] MEDS: methylPREDNISolone SOD SUCCI 125 MG/2 ML VIAL IV SCH ×5 (00:20→21:44)
[2021-07-28] MEDS: PROPRANOLOL 20 MG TAB PO SCH ×2 (07:32→21:44)
[2021-07-28] MEDS: SULFAMETHOX-TMP 800-160MG 1 EACH TAB PO SCH ×2 (07:33→21:44)
[2021-07-28] MEDS: TERBINAFINE 250 MG TAB PO SCH (07:34)
--- NOTE | 2021-07-28 08:50 | HP ---
HISTORY AND PHYSICAL A 51-year-old white male came to the hospital with COPD exacerbation, cough, wheezing, shortness of breath. He is lives is homeless, [place] around town and [place] He came in with shortness of breath and significant wheezing for which she failed outpatient treatment. He was admitted for COPD exacerbation. He is current ex alcoholic, does smoke Lives unemployed. [place]. Is unable to work due to his breathing. Home medicines Singulair 10 mg daily. Flovent 220 -2 puffs b.i.d., Xolair injections every 14 day, propranolol 60 mg b.i.d., Spiriva 1 puff daily, albuterol sulfate 2 puffs q.4 hours, terbinafine 250 daily. ALLERGIES: PENICILLIN. 14-point review of systems otherwise negative. History of asthma, hypertension, COPD, nicotine addiction. SURGERIES: Appendectomy, hernia repair, tonsillectomy, depression, current everyday smoker, heavy alcohol abuse, although he says has not drank in 2 weeks. Does smoke marijuana. PHYSICAL EXAMINATION: Vital signs are reviewed, cardiovascular S1, S2. Lungs show wheezes x4. Decreased breath sounds x4. Psych fair mood and affect. Neurologic alert orient x3. Cardiovascular S1, S2. GI soft. Hematology negative Homans. Recent endocrine, thin cachectic. ASSESSMENT: COPD exacerbation, possible tracheobronchitis, history nicotine addiction and history of alcoholism as well as allergic asthma and migraines. Continue current treatment from home IV steroids, DuoNeb updrafts, Pulmicort updrafts, pulmonary consult, CT scan of the chest. MMODL / IJN: [id number] /
[2021-07-28] MEDS: FLUTICASONE 110 MCG INHALER INHALATION SCH ×2 (08:56→20:08)
[2021-07-28] MEDS: IPRATROPIUM 0.5 MG/2.5 ML NEBU INHALATION SCH ×4 (08:57→20:06)
--- NOTE | 2021-07-28 10:30 | CT ---
EXAMINATION TYPE: CT chest w con DATE OF EXAM: 07/28/2021 COMPARISON: 04/04/2021 and 08/26/2019 HISTORY: 51-year-old male COPD, asthma, difficulty breathing TECHNIQUE: Contiguous axial scanning of the chest after the administration of 100 mL of Isovue 300. Coronal/sagittal reconstructions performed. CT DLP: 128.3mGycm. Automatic exposure control utilized for a dose reduction. FINDINGS: Heart normal size without pericardial effusion. Aorta normal caliber with conventional arch vessel branching anatomy. No thoracic lymphadenopathy by CT size criteria. Trace bilateral gynecomastia. This seems to be some minimal emphysematous change in the upper lungs. Stable scarring at the inferio r lingula. Otherwise, no consolidation or pleural effusion. Visualized upper abdomen shows no gross abnormality. There is some admixture of contrast in the middl e hepatic vein during some incidental reflux of contrast. No osseous destructive process. IMPRESSION: COPD with minimal emphysema. Small area of chronic scarring at the inferior lingula. No acute cardiop ulmonary process.
[2021-07-28 14:11] VITALS: BMI 17.5
--- NOTE | 2021-07-28 16:35 | P.CNPUL ---
History of Present Illness Consult date: 07/28/21 Reason for consult: dyspnea, cough, asthma, COPD Chief complaint: Shortness of breath and cough progressively for the last 4 weeks History of present illness: Patient is a 51-year-old homeless snf person has end-stage COPD has been smoking a pack to 2 pack a day patient was having more short of breath for the last 2-4 weeks have been progressive in nature eventually decided come into hospital, does have ongoing cough, sputum is clear but thick and mucoid, has a history of ALLERGIC asthma has been on Biologics also on outpatient basis, chest x-ray shows hyperinflation, computed tomography scan of the chest emphysematous changes and upper lobe scarring in the inferior part of the lingula overall COPD-like changes, currently patient is being treated with IV steroids and bronchodilators and antibiotics Review of Systems All systems: negative Past Medical History Past Medical History: Asthma, Hypertension History of Any Multi-Drug Resistant Organisms: None Reported Past Surgical History: Adenoidectomy, Hernia Repair, Tonsillectomy Past Anesthesia/Blood Transfusion Reactions: No Reported Reaction Past Psychological History: Depression Smoking Status: Current every day smoker Past Alcohol Use History: None Reported, Abuse, Daily, Heavy Additional Past Alcohol Use History / Comment(s): patient states that he drinks as much as he can get his hands on. He states that he drinks liquior. Past Drug Use History: Marijuana Additional Drug Use History / Comment(s): Pt states that he smokes 1/2 a gram every other day. He also states that he smokes 1 pack a day since he was 12 years old. Medications and Allergies Home Medications Medication Instructions Recorded Confirmed Type Montelukast [Singulair] 10 mg PO HS 11/27/17 07/27/21 History Fluticasone Propionate [Flovent 2 puff INHALATION RT-BID 04/04/21 07/27/21 History Hfa 220 mcg] Omalizumab [Xolair] 75 mg SQ Q14D 04/04/21 07/27/21 History Omalizumab [Xolair] 150 mg SQ Q14D 04/04/21 07/27/21 History Propranolol HCl [Inderal] 60 mg PO BID 04/04/21 07/27/21 History Tiotropium [place] [Spiriva] 1 cap INHALATION RT-DAILY 04/04/21 07/27/21 History terbinafine HCL [Terbinafine HCl] 250 mg PO DAILY 04/04/21 07/27/21 History Albuterol Sulfate [Proair Hfa] 1 - 2 puff INHALATION RT-QID PRN 07/27/21 07/27/21 History Allergies Allergy/AdvReac Type Severity Reaction Status Date / Time Penicillins Allergy Rash/Hives Verified 07/27/21 13:36 Physical Exam Vitals: Vital Signs Temp Pulse Pulse Resp BP BP Pulse Ox 07/28/21 15:58 68 07/28/21 15:45 68 07/28/21 15:00 97.9 F 66 17 145/84 97 07/28/21 14:00 66 17 07/28/21 12:07 72 07/28/21 11:55 68 07/28/21 08:00 70 17 07/28/21 07:00 97.7 F 70 17 171/107 98 07/28/21 02:00 97.9 F 63 18 133/84 97 07/27/21 20:00 98.4 F 66 18 134/84 94 L 07/27/21 19:04 98.4 F 93 16 146/95 96 07/27/21 16:45 98.1 F 66 18 145/94 98 Intake and Output 07/28/21 07/28/21 07/28/21 06:59 14:59 22:59 Intake Total 236 Balance 236 Intake: Oral 236 Other: Voiding Method Toilet # Voids 2 7 # Bowel Movements 7 Weight 50.757 kg - Constitutional General appearance: average body habitus, cooperative, disheveled - EENT Eyes: PERRLA Ears: bilateral: normal - Neck Neck: normal ROM Carotids: bilateral: upstroke normal Thyroid: bilateral: normal size - Respiratory Respiratory: bilateral: diminished, wheezing - Cardiovascular Rhythm: regular Heart sounds: normal: S1, S2 - Gastrointestinal General gastrointestinal: normal bowel sounds - Neurologic Neurologic: CNII-XII intact - Musculoskeletal Musculoskeletal: gait normal, generalized weakness, strength equal bilaterally - Psychiatric Psychiatric: A&O x's 3, appropriate affect, intact judgment & insight Results - Laboratory Findings CBC and BMP: 07/27/21 13:48 07/27/21 13:48 PT/INR, D-dimer PT 9.9 sec (9.0-12.0) 07/27/21 13:48 INR 0.9 (<1.2) 07/27/21 13:48 Abnormal lab findings: Abnormal Labs 07/27/21 13:48 Sodium 136 L Creatinine 0.63 L Glucose 100 H - Diagnostic Findings Chest x-ray: report reviewed, image reviewed CT scan - chest: report reviewed, image reviewed (Finding as noted above) Assessment and Plan Assessment: Acute COPD exacerbation Tracheobronchitis Chronic ALLERGIC asthmachronic persistent severe asthma History of smoking and nicotine use Plan: Overall plan is to continue bronchodilators steroids and antibiotics continue deep breathing exercises patient is educated and consult about smoking cessation will follow clinical course closely Time with Patient: Greater than 30
--- NOTE | 2021-07-28 17:52 | PN ---
PROGRESS NOTE This is a 51-year-old white male who came in with COPD exacerbation. CT scan of the chest showed COPD with minimal emphysema, scarring; no acute cardiogenic process. The patient still has wheezing, but it is improved with IV steroids and updrafts. Cardiovascular: S1, S2. Lungs clear. GI soft. Lungs show scattered wheeze and rhonchi. ASSESSMENT: 1. Chronic obstructive pulmonary disease exacerbation. 2. Nicotine addiction. 3. Acute hypoxemic respiratory failure. Patient appears to be stable. PE is ruled out. When his breathing improves he will be discharged home on oral steroids and antibiotics. Wait for turnaround planner. MMODL / IJN: [id number] /
[2021-07-28] MEDS: MONTELUKAST 10 MG TAB PO SCH (21:44)
[2021-07-29] MEDS: methylPREDNISolone SOD SUCCI 125 MG/2 ML VIAL IV SCH ×4 (05:43→23:51)
[2021-07-29] MEDS: PROPRANOLOL 20 MG TAB PO SCH ×2 (07:59→20:31)
[2021-07-29] MEDS: SULFAMETHOX-TMP 800-160MG 1 EACH TAB PO SCH ×2 (07:59→20:31)
[2021-07-29] MEDS: TERBINAFINE 250 MG TAB PO SCH (07:59)
[2021-07-29] MEDS: FLUTICASONE 110 MCG INHALER INHALATION SCH ×2 (08:02→19:37)
[2021-07-29] MEDS: IPRATROPIUM 0.5 MG/2.5 ML NEBU INHALATION SCH ×4 (08:02→19:36)
[2021-07-29] MEDS: IPRATROPIUM-ALBUTEROL 3 ML NEB INHALATION PRN (11:26)
--- NOTE | 2021-07-29 12:00 | PN ---
PROGRESS NOTE A 51-year-old white male admitted with COPD exacerbation. His breathing is improving every day, 95% on room air O2 saturation, pulse is 50s to 60s. Remains on his blood pressure medicine. Cardiovascular S1, S2. Lungs mild wheeze. Hematology negative Homans. Psych fair mood and affect. Chest CT was reviewed with him. ASSESSMENT: 1. COPD exacerbation. 2. Nicotine addiction. 3. Ex alcoholic. PLAN: Continue with bronchodilators and antibiotics. Prognosis is guarded. He has allergic asthma and nicotine addiction with smoking. Prognosis is guarded. Discharge home when cleared by Dr. Butcher. MMODL / IJN: [id number] /
[2021-07-29] MEDS: MONTELUKAST 10 MG TAB PO SCH (20:31)
--- NOTE | 2021-07-30 01:06 | P.PN ---
Subjective Progress Note Date: 07/30/21 Principal diagnosis: Acute COPD exacerbation Tracheobronchitis Chronic ALLERGIC asthmachronic persistent severe asthma History of smoking and nicotine use 07/30/2021, patient seen eval reexamined during the rounds reviewed medications reviewed care plan discussed, respiratory status remained stable shortness of breath slightly better now have been on steroids breathing treatment, overall respiratory status significantly improved Agri for discharge planning Patient is a 51-year-old homeless senior living person has end-stage COPD has been smoking a pack to 2 pack a day patient was having more short of breath for the last 2-4 weeks have been progressive in nature eventually decided come into hospital, does have ongoing cough, sputum is clear but thick and mucoid, has a history of ALLERGIC asthma has been on Biologics also on outpatient basis, chest x-ray shows hyperinflation, computed tomography scan of the chest emphysematous changes and upper lobe scarring in the inferior part of the lingula overall COPD-like changes, currently patient is being treated with IV steroids and bronchodilators and antibiotics Objective - Vital Signs Vital signs: Vital Signs Temp 98.1 F 07/29/21 20:00 Pulse 66 07/29/21 20:00 Resp 18 07/29/21 20:00 BP 134/76 07/29/21 20:00 Pulse Ox 95 07/29/21 20:00 Intake & Output 07/29/21 07/29/21 07/30/21 06:59 18:59 06:59 Intake Total 355 Balance 355 Intake: Oral 355 Other: Voiding Method Toilet Toilet Toilet # Voids 1 1 1 - Exam - Constitutional General appearance: average body habitus, cooperative, disheveled - EENT Eyes: PERRLA Ears: bilateral: normal - Neck Neck: normal ROM Carotids: bilateral: upstroke normal Thyroid: bilateral: normal size - Respiratory Respiratory: bilateral: diminished, wheezing significantly improved compared to yesterday exam - Cardiovascular Rhythm: regular Heart sounds: normal: S1, S2 - Gastrointestinal General gastrointestinal: normal bowel sounds - Neurologic Neurologic: CNII-XII intact - Musculoskeletal Musculoskeletal: gait normal, generalized weakness, strength equal bilaterally - Psychiatric Psychiatric: A&O x's 3, appropriate affect, intact judgment & insight - Labs CBC & Chem 7: 07/27/21 13:48 07/27/21 13:48 Assessment and Plan Assessment: Acute COPD exacerbation Tracheobronchitis Chronic ALLERGIC asthmachronic persistent severe asthma History of smoking and nicotine use Plan: Overall plan is to continue bronchodilators steroids and antibiotics continue deep breathing exercises patient is educated and consult about smoking cessation will follow clinical course closely, overall patient is stable pulmonary standpoint for discharge with follow-up on outpatient basis Time with Patient: Greater than 30
[2021-07-30] MEDS: methylPREDNISolone SOD SUCCI 125 MG/2 ML VIAL IV SCH (05:39)
[2021-07-30] MEDS: IPRATROPIUM 0.5 MG/2.5 ML NEBU INHALATION SCH ×2 (07:10→11:10)
[2021-07-30] MEDS: FLUTICASONE 110 MCG INHALER INHALATION SCH (07:10)
[2021-07-30] MEDS: PROPRANOLOL 20 MG TAB PO SCH (07:38)
[2021-07-30] MEDS: SULFAMETHOX-TMP 800-160MG 1 EACH TAB PO SCH (07:38)
[2021-07-30] MEDS: TERBINAFINE 250 MG TAB PO SCH (07:38)
[2021-07-30 07:55] VITALS: BP 153/90; RESP 18; TEMP 96.9
[2021-07-30] MEDS: IPRATROPIUM-ALBUTEROL 3 ML NEB INHALATION PRN (11:10)
[2021-07-30 11:22] VITALS: PULSE 65
== END 2021-07-30 12:03 | disposition home or self-care (01) ==
LOC: EC 12:43 → 6NMEDSUR 14:54
PROVIDERS: ADMIT Family Medicine; ATTEND Family Medicine
DX: J44.1 Chronic obstructive pulmonary disease with (acute) exacerbation (principal); F17.210 Nicotine dependence, cigarettes, uncomplicated; J96.01 Acute respiratory failure with hypoxia; I10 Essential (primary) hypertension; F32.9 Major depressive disorder, single episode, unspecified; F10.20 Alcohol dependence, uncomplicated; Z59.0 Homelessness; Z88.0 Allergy status to penicillin; Z79.51 Long term (current) use of inhaled steroids; Z79.899 Other long term (current) drug therapy; Z71.6 Tobacco abuse counseling; Z86.69 Personal history of other diseases of the nervous system and sense organs
CPT/HCPCS: 99285; 96376 ×2; 96361 ×2; 96374; 36415; 94640 ×8; 94760 ×2; 93005; 80053; 83735; 84484; 85025; 85610; 85730; 71046; 71260; G0378 ×4; J2930 ×4; Q9967